=== PATIENT | female | born 1955 | race Caucasian/White ===

== ENCOUNTER 2021-05-14 14:33 | Outpatient (CLI) | payer MEDICARE, OTHER, SELFPAY ==
--- NOTE | 2021-05-14 14:00 | ECG_ITS ---
Measurements Intervals [place] Rate: 67 P: 72 [place]: 135 QRS: 80 QRSD: 134 T: 41 QT: 395 QTc: 420 Interpretive Statements SINUS RHYTHM POSSIBLE LEFT ATRIAL ENLARGEMENT RIGHT BUNDLE BRANCH BLOCK BASELINE ARTIFACT- II, III, AVL, AVF, V4-V5 ABNORMAL ECG Electronically Signed On 05-14-2021 15:00:32 CDT by Ej Norman D.O.
== END 2021-05-14 14:34 | disposition home or self-care (01) ==
LOC: ANHSURGERY 14:38
PROVIDERS: PCP Nurse Practitioner; Visit Provider Otolaryngology
DX: Z01.810 Encounter for preprocedural cardiovascular examination (principal); I45.10 Unspecified right bundle-branch block
CPT/HCPCS: 93005

== ENCOUNTER 2021-05-25 01:13 | Day surgery (SDC) | payer MEDICARE, OTHER, SELFPAY ==
[2021-05-14 12:11] VITALS: BMI 18.3
--- NOTE | 2021-05-24 05:46 | PM.HPGS ---
History of Present Illness History of Present Illness Consent: Risks, benefits, and alternatives have been discussed and questions answered. Patient agrees to proceed with procedure. Chief complaint: hypercalcenia Narrative: Zabrina Roa is a 65 year old female with a history of hypercalcemia she has a previous history of a femur fracture renal insufficiency sestamibi scan and ultrasound show a left parathyroid adenoma 8 mm Review of Systems Review of Systems: All systems reviewed & are unremarkable except as noted in HPI and below PMFSH Family History Family History Other Cancer Diabetes mellitus Heart disease Hypertension Social History Social History Smoking packs per day: 1 Smoking cigarettes per day: 20.0 Years smoked: 30 Smoking pack-years: 30.00 Smoking status: Former smoker Tobacco type: cigarettes Smoking end date: 03/11/17 Alcohol intake: never Substance use: never Additional living arrangements comments: DAUGHTER LIVES [facility]EXT DOOR Spiritual care concerns: No Meds Home Medications and Allergies Home Medications Medication Instructions Recorded Confirmed Type citalopram 10 mg tablet 10 mg PO QAM 01/18/21 05/14/21 History famotidine 40 mg tablet 40 mg PO DAILY 01/18/21 05/14/21 History folic acid 1 mg tablet 1 mg PO DAILY 01/18/21 05/14/21 History meloxicam 7.5 mg tablet 7.5 mg PO DAILY 01/18/21 05/14/21 History potassium chloride 20 mEq 20 meq PO DAILY 01/18/21 05/14/21 History tablet,extended release(part/cryst) simvastatin 20 mg tablet 20 mg PO DAILY 01/18/21 05/14/21 History aspirin [Adult Low Dose Aspirin] 81 mg PO DAILY 05/14/21 05/14/21 History cyanocobalamin (vitamin B-12) 1,000 mcg PO DAILY 05/14/21 05/14/21 History multivitamin [Daily Multiple] 1 tablet PO DAILY 05/14/21 05/14/21 History Allergies Allergy/AdvReac Type Severity Reaction Status Date / Time pollen extracts Allergy itchy eyes Verified 05/14/21 12:05 runny nose Exam Narrative: chest clear heart rhythm murmurs abdomen soft extremities negative palpable thyroid nodules on both sides Assessment and Plan Additional Plan plan exploration for parathyroid adenoma
[2021-05-25] VITALS (8 sets, daily range): BP systolic 87–160; BP diastolic 52–78; PULSE 61–68; RESP 12–20; TEMP 36.2–36.4; O2SAT 98–100; BMI 18.0
--- NOTE | ~2021-05-25 | NM_ITS ---
EXAMINATION: NM parathyroid injection only DATE: 05/25/2021 11:38 INDICATION: Parathyroid adenoma TECHNIQUE/FINDINGS/IMPRESSION: 5.1 mCi Tc99m Cardiolite (sestamibi) was administered by intravenous r oute for intraoperative guidance during parathyroidectomy to be performed by Dr. Vargas. No images obtained. Reviewed, dictated and finalized at location A.
--- NOTE | 2021-05-25 06:39 | WPDHPUPDATE1 ---
History and Physical Update Update Date/Time: 05/25/21 06:39 History and Physical has been reviewed, including an updated exam of the patient. There are NO changes in the patient's condition. Risks, benefits, and alternatives have been discussed and questions answered. Patient agrees to proceed with procedure.
[2021-05-25] MEDS: ACETAMINOPHEN 500 MG TABLET 1000 MG PO (09:46)
--- NOTE | 2021-05-25 09:54 | WPDANESEPPF ---
Anes - Initial Pre Proc Eval Procedure: Operation Date: 05/25/21 12:00 Proposed Procedures p Parathyroid Exploration with Sestamibi Injection - Suraj Vargas MD Date/Time: 05/25/21 09:54 Surgeon: Suraj Vargas MD Pre Op Diagnosis: Hypercalcemia Patient Data Age: 65 Gender: F Height: 1.78 m Weight: 58 kg Allergies Allergy/AdvReac Type Severity Reaction Status Date / Time pollen extracts Allergy itchy eyes Verified 05/25/21 09:36 runny nose Home Medications Medication Instructions Recorded Confirmed Type citalopram 10 mg tablet 10 mg PO QAM 01/18/21 05/25/21 History famotidine 40 mg tablet 40 mg PO DAILY 01/18/21 05/25/21 History folic acid 1 mg tablet 1 mg PO DAILY 01/18/21 05/25/21 History meloxicam 7.5 mg tablet 7.5 mg PO DAILY 01/18/21 05/25/21 History potassium chloride 20 mEq 20 meq PO DAILY 01/18/21 05/25/21 History tablet,extended release(part/cryst) simvastatin 20 mg tablet 20 mg PO DAILY 01/18/21 05/25/21 History aspirin [Adult Low Dose Aspirin] 81 mg PO DAILY 05/14/21 05/25/21 History cyanocobalamin (vitamin B-12) 1,000 mcg PO DAILY 05/14/21 05/25/21 History multivitamin [Daily Multiple] 1 tablet PO DAILY 05/14/21 05/25/21 History ECG: Date of Service: 05/14/21 Procedure(s): CA 12 lead EKG Accession Number(s): [id number] cc: ~ Measurements Intervals [place] Rate: 67 P: 72 [place]: 135 QRS: 80 QRSD: 134 T: 41 QT: 395 QTc: 420 Interpretive Statements SINUS RHYTHM POSSIBLE LEFT ATRIAL ENLARGEMENT RIGHT BUNDLE BRANCH BLOCK BASELINE ARTIFACT- II, III, AVL, AVF, V4-V5 ABNORMAL ECG Electronically Signed On 05-14-2021 15:00:32 CDT by Ej Norman D.O. Patient hx anesthesia problems: none Family hx anesthesia problems: none PMFSH Past Medical History Medical History (Updated 05/25/21 @ 09:56 by Lobo Leyva MD) Chronic kidney disease, stage 3 unspecified Hypercalcemia Hyperparathyroidism Family History Family History Other Cancer Diabetes mellitus Heart disease Hypertension Social History Social History Smoking packs per day: 1 Smoking cigarettes per day: 20.0 Years smoked: 30 Smoking pack-years: 30.00 Smoking status: Former smoker Tobacco type: cigarettes Smoking end date: 03/11/17 Alcohol intake: never Substance use: never Living arrangements: alone Additional living arrangements comments: DAUGHTER LIVES [facility]EXT DOOR Spiritual care concerns: No Anes - Eval Final PreProcedure Day of Procedure 05/25/21 09:54 Patient weight: normal Heart: regular rate and rhythm Lungs: clear to auscultation and normal air movement Airway: Mallampati scale class II Neurological: alert and oriented Last oral intake: >/= 8 hours ASA classification: III Emergent: no Anesthetic plan: proceed Anesthesia type and monitoring: general ETT Informed Consent: The patient's anesthetic plan and its attendant risks and benefits were discussed with the patient/family/POA. Questions were solicited and answers provided to the satisfaction of the patient/family/POA.
--- NOTE | 2021-05-25 10:14 | SUR.PREOP ---
0958; PT TAKEN TO [facility]. 1002; JEFFRY FROM [facility] INJECTION GIVEN.
[2021-05-25] MEDS: LACTATED RINGERS 1,000 ML 30 ML IV CONT ×2 (10:17→12:17)
[2021-05-25] MEDS: ceFAZolin 2 GM/D5W 50 ML 2 GM/50 ML BAG IVPB (11:20)
--- NOTE | 2021-05-25 12:01 | SUR.OPER ---
Specimen excised for Frozen Section at 1154 to rule out parathyroid. Delivered to [facility] in lab at 1201.
--- NOTE | 2021-05-25 12:21 | W.PM.PROC2 ---
Procedure Note - Detailed Date of Procedure 05/25/21 Pre-op Diagnosis Hypercalcemia Post-op Diagnosis same Procedure Performed Parathyroidectomy Surgeon Suraj Vargas MD Description of Procedure Patient was prepped and draped fashion general anesthesia a low collar incision was made subplatysmal flaps elevated the left side of the thyroid was identified a parathyroid adenoma was immediately identified in the inferior pole dissected out sent for pathologic examination confirmed to be a parathyroid adenoma incision closed in layers awakened returned to recovery in good condition
== END 2021-05-25 13:40 | disposition home or self-care (01) ==
PROVIDERS: PCP Nurse Practitioner; Visit Provider Otolaryngology
PROC: (CPT 60500; principal; 2021-05-25 12:00)
DX: D35.1 Benign neoplasm of parathyroid gland (principal); E83.52 Hypercalcemia; I12.9 Hypertensive chronic kidney disease with stage 1 through stage 4 chronic kidney disease, or unspecified chronic kidney disease; N18.30 Chronic kidney disease, stage 3 unspecified; Z79.82 Long term (current) use of aspirin; Z87.891 Personal history of nicotine dependence
CPT/HCPCS: 60500; 78808; 88305; 88331; A9270; A9500; J0330; J0690; J1100; J2405; J2704; J3010; J7120